=== PATIENT | male | born 1970 | race Two or more races ===

== ENCOUNTER 2017-03-16 23:40 | Emergency (ER) | payer OTHER ==
[~2017-03-16] VITALS: Ht 167.6 cm; Wt 65.0 kg
[2017-03-17 00:31] VITALS: BP 121/85
== END 2017-03-17 00:48 | disposition home or self-care (01) ==
LOC: ER 23:40
DX: H10.9 Unspecified conjunctivitis (principal); J02.9 Acute pharyngitis, unspecified
CPT/HCPCS: 99283